=== PATIENT | female | born 1945 | race Caucasian/White ===

== ENCOUNTER 2018-02-03 06:38 | Day surgery (SDC) | payer MEDICARE, OTHER, SELFPAY ==
[2018-01-18 09:10] VITALS: BMI 31.9
[2018-02-03] VITALS (9 sets, daily range): BP systolic 80–138; BP diastolic 47–85; PULSE 67–84; RESP 12–16; TEMP 36.1–36.4; O2SAT 93–99; BMI 31.9
[2018-02-03] MEDS: LACTATED RINGERS 1,000 ML 100 ML IV (07:27)
[2018-02-03] MEDS: CEFAZOLIN 2 GM/100 ML FROZ.PIGGY IV (08:27)
--- NOTE | 2018-02-03 08:47 | SUR.OPER ---
Supine on padded OR bed, head on pillow, arms secured on padded arm boards at <90 degrees abduction, legs uncrossed, safety belt at thigh, tape over blanket over lower legs.
[2018-02-03] MEDS: LACTATED RINGERS 1,000 ML 42 ML IV (09:13)
[2018-02-03] MEDS: BUPIVACAINE 0.5% (PF) VIAL 30 ML INJ (09:15)
[2018-02-03] MEDS: LIDOCAINE 1% W/EPI INJ 20 ML INJ (09:16)
[2018-02-03] MEDS: CEFAZOLIN 1 GM VIAL IV (09:17)
--- NOTE | 2018-02-03 09:48 | PM.OP.1 ---
Operative Date/Time/Diagnoses Date of procedure: 02/03/18 Time of procedure: 09:48 Pre-op diagnosis: Incisional hernia Post-op diagnosis: same Procedure & Clinicians Procedure: Incisional hernia repair Same procedure as scheduled: Yes Indications: Painful and enlarging mid abdominal incisional hernia Surgeon: Promise Cota Anesthesia Type: General (Kotlarczyk) and Local Operative Notes Findings: 1. An area 6 x 4 cm in size with multiple fascial defects. The largest defect was approximately 2 cm right in the center of the problem area 2. Ethibond sutures from previous operations remain in place. The fascia is torn above and below sutured areas. 3. Hernia sac containing only preperitoneal fat Closure Type: primary Specimen(s): none sent Implants & Drains: 7 x 11 cm Prolene onlay mesh patch trimmed to fit Estimated Blood Loss (mL): 20 Blood products transfused: none Procedure in detail: After obtaining informed consent, the patient is brought to the operating room and placed in the supine position on the operating table. Following successful induction of general endotracheal anesthesia, appropriate padding of all bony prominences, and placement of appropriate monitors, the abdomen is prepped and draped in the standard surgical fashion. A time-out was held per SCOAP protocol. We began by infiltrating a mixture of local anesthetics and directly over the defect in the healed wound. The existing wound was then opened sharply revealing the fascia and areas of preperitoneal fat extending through the fascia. The edges of the fascia were defined. The hernia sacs were then released from the overlying tissue and placed back into the abdominal cavity after gentle adhesiolysis through the defects themselves. The wound was checked for hemostasis and irrigated with Ancef containing solution. The abdominal wall was palpated within the abdominal cavity. There is no peritoneal cavity remaining and no separation between the abdominal wall and the bowel. For this reason, I elected not to place mesh inside the abdominal cavity but to perform an onlay repair. This was done by repairing each defect with interrupted #1 Prolene sutures. I then trimmed a woven Prolene onlay patch to fit the area and sewed it to the incision and then to the surrounding fascia using 0 Prolene running suture. The wound was then checked for hemostasis. It was irrigated with Ancef containing solution and aspirated free of all blood and particulate matter. The abdominal incision was then closed in 3 layers with Vicryl and Monocryl suture. Dermabond was applied to the wound. After had been allowed to dry a binder was placed over the patient's abdominal wall to buttress the area of weakness. All sponge, needle, and instrument counts were correct at the conclusion of the case. The patient was allowed to awaken from anesthesia without difficulty and taken to the post anesthesia care unit in good condition. Complications: none Condition: stable Disposition: PACU Plan for aftercare: 1. Discharge to home 2. Follow up with me in 2 weeks 3. Wear binder at all times when out of bed.
--- NOTE | 2018-02-03 10:26 | P.HP_ITS ---
History of Present Illness Date Patient Seen: 02/03/18 Time Patient Seen: 08:22 Chief complaint: [id number] INCISIONAL HERNIA REPAIR Narrative: 73 year old lady with a history of intra-abdominal catastrophe and multiple operations. Presents today for repair of an incisional hernia. She reports she is feeling well. She has a spinal cord stimulator and it is currently on. She left her magnet at home. Patient History Medical History Afib (Acute) DJD (degenerative joint disease) (Acute) Diabetes (Acute) Femur fracture, left (Acute) GERD (gastroesophageal reflux disease) (Acute) Gout (Acute) Hearing loss (Acute) History of asthma (Acute) History of colitis (Acute) History of gastroenteritis (Acute) History of irritable bowel syndrome (Acute) History of kidney disease (Acute) History of pneumonia (Acute) History of rheumatic fever as a child (Acute) Hyperlipidemia (Acute) Hypothyroid (Acute) Osteoporosis (Acute) Severe back pain (Acute) Spinal stenosis (Acute) Ventral hernia (Acute) Surgical History H/O hernia repair (Acute ~1982) History of Demetrius fundoplication (Acute ~1981) History of abdominal surgery (Acute) History of back surgery (Acute) History of total knee arthroplasty (Acute) S/P foot surgery, right (Acute) Family & Social History Family History: Reviewed 02/03/18 by Promise Cota MD Social History: household members spouse Tobacco & Substance use: Smoking Status Never smoker alcohol intake never Substance Use Type does not use Meds Home Medications Medication Instructions Recorded Confirmed Type [TURMERIC] 2 cap PO QDAY #0 04/20/17 01/18/18 History acyclovir 400 mg PO TID #0 04/20/17 01/18/18 History albuterol sulfate 3 ml INH TIDP PRN #0 04/20/17 01/18/18 History allopurinol 300 mg PO QDAY #0 04/20/17 01/18/18 History calcium carbonate 1 tab PO BIDCC #0 04/20/17 02/03/18 History cholecalciferol (vitamin D3) 2,000 unit PO QDAY #0 04/20/17 02/03/18 History [Vitamin D3] cyanocobalamin (vitamin B-12) 100 mcg PO DAILY PRN #0 04/20/17 02/03/18 History [Vitamin B-12] cyclobenzaprine 5 mg PO PRN PRN #0 04/20/17 01/18/18 History magnesium oxide 250 mg PO QDAY #0 04/20/17 02/03/18 History montelukast 10 mg PO QPM #0 04/20/17 02/03/18 History pseudoephedrine HCl 60 mg PO Q6H PRN #0 04/20/17 02/03/18 History ranitidine HCl 150 mg PO BID #0 04/20/17 02/03/18 History valacyclovir 2,000 mg PO Q12H #0 04/20/17 01/18/18 History glipizide 5 mg PO BID 02/03/18 02/03/18 History hydrocodone-acetaminophen 1 tab PO Q4-6H PRN #40 tab MDD 6 02/03/18 Rx levothyroxine [Synthroid] 88 mcg PO DAILY 02/03/18 02/03/18 History metformin 500 mg PO BID 02/03/18 02/03/18 History ondansetron 4 mg PO QID PRN #20 tab 02/03/18 Rx Allergies Allergy/AdvReac Type Severity Reaction Status Date / Time lactose Allergy Intermediate Verified 02/03/18 07:29 tramadol [TRAMADOL] Allergy Unknown SEVERE Unverified 02/03/18 07:29 HEADACHE oxycodone [OXYCODONE] AdvReac Mild NAUSEA Unverified 02/03/18 07:29 celecoxib [From CELEBREX] AdvReac Unknown GI Unverified 02/03/18 07:29 gabapentin [GABAPENTIN] AdvReac Unknown DIZZY Unverified 02/03/18 07:29 hydromorphone [HYDROMORPHONE] AdvReac Unknown NAUSEA/MILD Unverified 02/03/18 07 :29 ITCHING lisinopril [LISINOPRIL] AdvReac Unknown COUGH Unverified 02/03/18 07:29 meloxicam [MELOXICAM] AdvReac Unknown GI DISTRESS Unverified 02/03/18 07:29 morphine [MORPHINE] AdvReac Unknown VOMITING Unverified 02/03/18 07:29 salmon AdvReac Intermediate Uncoded 02/03/18 07:29 Review of Systems Review of Systems All systems reviewed & are unremarkable except as noted in HPI and below Exam Vital Signs (past 8 hours): - 02/03/18 07:14 02/03/18 09:46 02/03/18 09:51 Temperature 97.0 F L 97.5 F L Pulse Rate 76 84 84 Respiratory Rate 16 12 13 Blood Pressure 138/85 80/51 L 93/52 L Pulse Oximetry 99 94 95 02/03/18 09:56 02/03/18 10:01 02/03/18 10:06 Temperature Pulse Rate 80 77 76 Respiratory Rate 13 16 14 Blood Pressure 82/47 L 104/62 99/65 Pulse Oximetry 95 94 93 Oxygen Delivery Method Room Air Narrative Exam Narrative: Lungs: Clear bilaterally Heart: Regular rate and rhythm Abdomen: Complex abdominal incision obviously healed by secondary intention with a palpable defect just above the umbilicus. Tender to palpation at the hernia site. Extremities: Trace edema Assessment & Plan Plan: Assessment/Plan Narrative: Pleasant 73-year-old lady with a history of intra-abdominal catastrophe several years ago who now has a incisional hernia. Due to the functioning spinal cord stimulator, we will not be using any cautery during this procedure. I discussed this with the patient and she understands that this will give her a slightly greater bleeding risk. We have once again discussed the risks and benefits of the procedure and she has expressed a desire to complete it today
--- NOTE | 2018-02-03 10:26 | SUR.PHASEII ---
PT ARRIVED TO PHASE II VIA STRETCHER. PT IN STABLE CONDITION. PT SITTING UP WITH EYES CLOSED, EASILY AROUSABLE TO VOICE WHEN SPOKEN TO. DRSG TO SURGICAL SITE C/D/I. ABD BINDER IN PLACE. PT DENIES ANY PAIN/DISCOMFORT OR NAUSEA AT THIS TIME. BED IN LOWEST POSITION AND CALL LIGHT WITHIN REACH OF PT. PT GIVEN BEVERAGE OF CHOICE AND AT BEDSIDE. BEDSIDE REPORT GIVEN TO ISIDORO PITTMAN AT THIS TIME. TRANSFERED CARE OF PT TO ISIDORO PITTMAN.
--- NOTE | 2018-02-03 10:43 | SUR.PHASEII ---
pt awake and alerrt. binder intact. pt denies any complaints. steady on her feet.. to take pt home. pt voided upon prior to d/c.
== END 2018-02-03 10:53 | disposition home or self-care (01) ==
PROVIDERS: PCP Physician Assistant; Visit Provider Surgery
PROC: (CPT 49560; principal; 2018-02-03 07:45)
DX: K43.2 Incisional hernia without obstruction or gangrene (principal); E11.9 Type 2 diabetes mellitus without complications; Z79.84 Long term (current) use of oral hypoglycemic drugs; Z96.89 Presence of other specified functional implants; I48.91 Unspecified atrial fibrillation
CPT/HCPCS: 49560; 49568; C1781; J0690; J2250; J2405; J2704; J3010

== ENCOUNTER 2018-02-06 01:18 | Emergency (ER) | payer MEDICARE, OTHER, SELFPAY ==
--- NOTE | 2018-02-06 01:20 | ED_ITS ---
HPI - General Adult General Chief complaint: Back Pain/Injury Stated complaint: PAIN AT INCISION SITE - HERNIA [id number] Time Seen by Provider: 02/06/18 01:19 Source: patient Mode of arrival: ambulatory Limitations: no limitations History of Present Illness HPI narrative: 73-year-old female who had a ventral incisional hernia repair done 3 days ago here at this hospital. After review of that noted did look like an uncomplicated surgery with mesh placement. Patient states that she is here for evaluation of left upper back pain. She states that it comes in spasms. Does localize to her left upper back. She also states that she has been having urinary incontinence issues. She states that 1 day after her surgery and prior to this visit she did have a temperature at of 100.4. She denies any other urinary symptoms. Has which she thinks is her normal postoperative abdominal pain. No lower back pain. Related Data Home Medications Medication Instructions Recorded Confirmed [TURMERIC] 2 cap PO QDAY #0 04/20/17 01/18/18 acyclovir 400 mg PO TID #0 04/20/17 01/18/18 albuterol sulfate 3 ml INH TIDP PRN #0 04/20/17 01/18/18 allopurinol 300 mg PO QDAY #0 04/20/17 01/18/18 calcium carbonate 1 tab PO BIDCC #0 04/20/17 02/03/18 cholecalciferol (vitamin D3) 2,000 unit PO QDAY #0 04/20/17 02/03/18 [Vitamin D3] cyanocobalamin (vitamin B-12) 100 mcg PO DAILY PRN #0 04/20/17 02/03/18 [Vitamin B-12] cyclobenzaprine 5 mg PO PRN PRN #0 04/20/17 01/18/18 magnesium oxide 250 mg PO QDAY #0 04/20/17 02/03/18 montelukast 10 mg PO QPM #0 04/20/17 02/03/18 pseudoephedrine HCl 60 mg PO Q6H PRN #0 04/20/17 02/03/18 ranitidine HCl 150 mg PO BID #0 04/20/17 02/03/18 valacyclovir 2,000 mg PO Q12H #0 04/20/17 01/18/18 glipizide 5 mg PO BID 02/03/18 02/03/18 levothyroxine [Synthroid] 88 mcg PO DAILY 02/03/18 02/03/18 metformin 500 mg PO BID 02/03/18 02/03/18 Previous Rx's Medication Instructions Recorded hydrocodone-acetaminophen 1 tab PO Q4-6H PRN #40 tab MDD 6 02/03/18 ondansetron 4 mg PO QID PRN #20 tab 02/03/18 cyclobenzaprine 10 mg PO TID PRN #9 tab 02/06/18 diazepam [Valium] 5 mg PO BID PRN #4 tab 02/06/18 Allergies Allergy/AdvReac Type Severity Reaction Status Date / Time lactose Allergy Intermediate Verified 02/06/18 02:04 tramadol [TRAMADOL] Allergy Unknown SEVERE Verified 02/06/18 02:04 HEADACHE oxycodone [OXYCODONE] AdvReac Mild NAUSEA Verified 02/06/18 02:04 celecoxib [From CELEBREX] AdvReac Unknown GI Verified 02/06/18 02:04 gabapentin [GABAPENTIN] AdvReac Unknown DIZZY Verified 02/06/18 02:04 hydromorphone [HYDROMORPHONE] AdvReac Unknown NAUSEA/MILD Verified 02/06/18 02: 04 ITCHING lisinopril [LISINOPRIL] AdvReac Unknown COUGH Verified 02/06/18 02:04 meloxicam [MELOXICAM] AdvReac Unknown GI DISTRESS Verified 02/06/18 02:04 morphine [MORPHINE] AdvReac Unknown VOMITING Verified 02/06/18 02:04 salmon AdvReac Intermediate Uncoded 02/03/18 07:29 Review of Systems Constitutional Reports fever(s), Denies headache(s) and Denies weakness ENT Ears, Nose, Mouth, and Throat: Denies headache(s) Cardiovascular Denies chest pain and Denies dyspnea Respiratory Denies dyspnea Gastrointestinal Gastrointestinal: Denies nausea and Denies vomiting Comments: Postoperative abdominal pain Genitourinary Denies hematuria, Denies dysuria, Denies flank pain and Reports urinary incontinence Musculoskeletal Reports back pain, Denies myalgias, Denies arthralgias and Denies numbness Integumentary/Breasts Denies lesions and Denies rash Neurologic Denies headache(s), Denies focal weakness, Denies numbness, Denies radicular pain and Denies weakness Hematologic/Lymphatic Denies easy bleeding and Denies easy bruising [facility] Medical History Afib (Acute) DJD (degenerative joint disease) (Acute) Diabetes (Acute) Femur fracture, left (Acute) GERD (gastroesophageal reflux disease) (Acute) Gout (Acute) Hearing loss (Acute) History of asthma (Acute) History of colitis (Acute) History of gastroenteritis (Acute) History of irritable bowel syndrome (Acute) History of kidney disease (Acute) History of pneumonia (Acute) History of rheumatic fever as a child (Acute) Hyperlipidemia (Acute) Hypothyroid (Acute) Osteoporosis (Acute) Severe back pain (Acute) Spinal stenosis (Acute) Ventral hernia (Acute) Surgical History H/O hernia repair (Acute ~1982) History of Demetrius fundoplication (Acute ~1981) History of abdominal surgery (Acute) History of back surgery (Acute) History of total knee arthroplasty (Acute) S/P foot surgery, right (Acute) Social History household members: spouse Smoking Status: Never smoker alcohol intake: never Exam Initial Vital Signs Initial Vital Signs: Vital Signs Temperature 97.1 F L 02/06/18 01:34 Pulse Rate 101 H 02/06/18 01:34 Respiratory Rate 18 02/06/18 01:34 Blood Pressure 132/84 02/06/18 01:34 Pulse Oximetry 97 02/06/18 01:34 Const General: cooperative, well developed, well groomed and No acute distress Orientation: alert, awake and oriented x3 HENMT Head: normal to inspection and normocephalic Resp Effort & Inspection: normal respiratory effort Auscultation: clear to auscultation bilaterally Cardio Rate: regular rate Rhythm: regular rhythm Pulses: radial pulses present GI Inspection: non-distended Palpation: soft Other: Midline surgical incision in place. No surrounding erythema. No dehiscence. Wound looks well. Back/Spine/Pelvis Other: Patient with tenderness to palpation over the left sided rhomboids. Paraspinal. No lower back pain. Skin Other: Surgical wound midline abdomen looks well no other rashes Neuro General: alert, awake and oriented x3 Cognition: normal cognition Speech: speech normal Motor: muscle tone normal throughout Sensory Exam: no sensory deficits noted Extrem General: normal to inspection and capillary refill normal Psych Appearance: grossly normal and well kempt Course Orders Ordered: ED Orders 02/06/18 02:26 Complete Blood Count AUTO DIFF Stat Comprehensive Metabolic Panel Stat Lactate (Lactic Acid) Stat Lipase Stat 02/06/18 02:50 XR chest 1V Stat 02/06/18 03:30 Venous Blood Gas Stat Discontinued Medications Diazepam (Valium) 5 mg PO NOW ONE Stop: 02/06/18 02:01 Last Admin: 02/06/18 02:06 Dose: 5 mg Vital Signs - 8 hr 02/06/18 01:34 Temperature 97.1 F L Pulse Rate 101 H Respiratory Rate 18 Blood Pressure 132/84 Pulse Oximetry 97 Medical Decision Making Medical Records Medical records reviewed: Yes I reviewed the patient's medical records. Lab Data Lab results reviewed: Yes I reviewed the patient's lab results. Result diagrams: 02/06/18 02:26 02/06/18 02:26 Lab Results 02/06/18 02/06/18 02/06/18 Range/Units 02:26 02:26 02:26 WBC 13.3 H (4.5-11.0) X10^3/uL RBC 4.97 (4.0-5.2) X10^6/uL Hgb 13.6 (12.0-16.0) g/dL Hct 41.2 (36-46) % MCV 82.9 (80-100) fL MCH 27.5 (26-34) PG MCHC 33.1 (30-36) % RDW 16.3 H (11.6-14.8) % Plt Count 245 (150-400) X10^3/uL Neut % (Auto) 78.8 H (50-75) % Lymph % (Auto) 10.7 L (25-40) % Hendry % (Auto) 9.7 (3-14) % Eos % (Auto) 0.1 L (2-4) % Baso % (Auto) 0.7 (0-2) % Neut # (Auto) 26239 H (0369-3972) /uL Sodium 137 (137-145) mmol/L Potassium 4.6 (3.4-5.1) mmol/L Chloride 101 (98-107) mmol/L Carbon Dioxide 21 L (22-32) mmol/L BUN 19 H (7-17) mg/dL Creatinine 0.90 (0.52-1.04) mg/dL Estimated GFR > 60.0 (>60) mL/min BUN/Creatinine Ratio 21.1 (6-22) Glucose 335 H (80-110) mg/dL Lactate 1.4 (0.7-2.1) mmol/L Calcium 9.7 (8.4-10.2) mg/dL Total Bilirubin 1.0 (0.2-1.3) mg/dL AST 19 (14-36) IU/L ALT 11 (9-52) IU/L Alkaline Phosphatase 91 (38-126) U/L Total Protein 7.6 (6.3-8.2) g/dL Albumin 4.3 (3.5-5.0) g/dL Globulin 3.3 (1.7-4.1) g/dL Albumin/Globulin Ratio 1.3 (1.0-2.8) Lipase (23-300) U/L 02/06/18 Range/Units 02:26 WBC (4.5-11.0) X10^3/uL RBC (4.0-5.2) X10^6/uL Hgb (12.0-16.0) g/dL Hct (36-46) % MCV (80-100) fL MCH (26-34) PG MCHC (30-36) % RDW (11.6-14.8) % Plt Count (150-400) X10^3/uL Neut % (Auto) (50-75) % Lymph % (Auto) (25-40) % Hendry % (Auto) (3-14) % Eos % (Auto) (2-4) % Baso % (Auto) (0-2) % Neut # (Auto) (6686-8499) /uL Sodium (137-145) mmol/L Potassium (3.4-5.1) mmol/L Chloride (98-107) mmol/L Carbon Dioxide (22-32) mmol/L BUN (7-17) mg/dL Creatinine (0.52-1.04) mg/dL Estimated GFR (>60) mL/min BUN/Creatinine Ratio (6-22) Glucose (80-110) mg/dL Lactate (0.7-2.1) mmol/L Calcium (8.4-10.2) mg/dL Total Bilirubin (0.2-1.3) mg/dL AST (14-36) IU/L ALT (9-52) IU/L Alkaline Phosphatase (38-126) U/L Total Protein (6.3-8.2) g/dL Albumin (3.5-5.0) g/dL Globulin (1.7-4.1) g/dL Albumin/Globulin Ratio (1.0-2.8) Lipase 13 L (23-300) U/L Urine Dip Bedside Urine Glucose 1000 mg/dl Bedside Urine Bilirubin + 1 Bedside Urine Ketone ++ 40 Urine Specific [place] 1.020 Bedside Urine Occult Blood - Negative Bedside Urine pH 6.0 Bedside Urine Protein +/- 15 Bedside Urine Urobilinogen - Negative Bedside Urine Nitrite - Negative Bedside Urine Leukocytes - Negative Esterase Point of care testing: Urine Dip Bedside Urine Glucose 1000 mg/dl Bedside Urine Bilirubin + 1 Bedside Urine Ketone ++ 40 Urine Specific [place] 1.020 Bedside Urine Occult Blood - Negative Bedside Urine pH 6.0 Bedside Urine Protein +/- 15 Bedside Urine Urobilinogen - Negative Bedside Urine Nitrite - Negative Bedside Urine Leukocytes - Negative Esterase Imaging Data Chest x-ray: Attestation: I personally reviewed and interpreted this imaging study as follows: My impression: Normal size heart No pneumothorax No focal consolidation MDM Narrative Additional Information: Patient's surgical incision looks very well. No signs of erythema. No dehiscence. Was tender to what I would expect this far postoperative. Her back pain was left upper back. Over the rhomboids. I suspect that this was a muscle spasm. She was having no lower back pain I do not feel that the urinary incontinence secondary to cauda equina. Her urine showed no signs of infection. Her chest x-ray shows no signs of infection. She did have an elevated white blood cell count however I head no source of an infection. This could be demargination secondary to her surgery. Patient was also hyperglycemic. Did have ketones in her urine however was not acidotic on her VBG. Patient was able to sleep and felt much better with her back pain after she was given Valium here in the ER. She was able to control her urine to the point to where she could give us a urine sample. Will hold on further workup for now. Will send home with a few pills of Valium. Also sent home with more Flexeril. She is instructed she needed to contact her operative surgeon and also her primary doctor on Thursday. She was given return precautions. She expressed understanding and agreement with plan. Discharge Plan Departure Patient Disposition: Home Clinical Impression: Thoracic back pain, Urinary incontinence Instructions: Urinary Incontinence -- Female, DI for Back Spasm Activity Restrictions/Additional Instructions: Recommend that you continue all of your postoperative instructions that you were given by your surgeon. Take the medications as directed. Call your surgeon in your primary doctor on Thursday for follow-up. Return to the emergency department for any new or worsening symptoms Prescriptions: New cyclobenzaprine 10 mg tablet 10 mg PO TID PRN (Reason: muscle spasm) Qty: 9 RF: 0 diazepam [Valium] 5 mg tablet 5 mg PO BID PRN (Reason: muscle spasm) Qty: 4 RF: 0 No Action pseudoephedrine HCl 30 MG tablet 60 mg PO Q6H PRN (Reason: Pain) Qty: 0 RF: 0 montelukast 10 MG tablet 10 mg PO QPM Qty: 0 RF: 0 allopurinol 300 MG tablet 300 mg PO QDAY Qty: 0 RF: 0 cyclobenzaprine 5 MG tablet 5 mg PO PRN PRN (Reason: Muscle Spasm) Qty: 0 RF: 0 ranitidine HCl 150 MG tablet 150 mg PO BID Qty: 0 RF: 0 acyclovir 400 MG tablet 400 mg PO TID Qty: 0 RF: 0 albuterol sulfate 2.5 MG/3 ML solution for nebulization 3 ml INH TIDP PRN (Reason: Pain) Qty: 0 RF: 0 calcium carbonate 500 MG tablet 1 tab PO BIDCC Qty: 0 RF: 0 magnesium oxide 250 MG tablet 250 mg PO QDAY Qty: 0 RF: 0 [TURMERIC] 2 cap PO QDAY Qty: 0 RF: 0 valacyclovir 1,000 MG tablet 2,000 mg PO Q12H Qty: 0 RF: 0 cyanocobalamin (vitamin B-12) [Vitamin B-12] 50 MCG tablet 100 mcg PO DAILY PRN (Reason: vitamin ) Qty: 0 RF: 0 cholecalciferol (vitamin D3) [Vitamin D3] 2,000 UNIT capsule 2,000 unit PO QDAY Qty: 0 RF: 0 levothyroxine [Synthroid] 88 mcg Tablet 88 mcg PO DAILY RF: 0 glipizide 5 mg Tablet 5 mg PO BID RF: 0 metformin 500 mg Tablet 500 mg PO BID RF: 0 hydrocodone-acetaminophen 5-325 mg tablet 1 tab PO Q4-6H MDD 6 PRN (Reason: pain) Qty: 40 RF: 0 ondansetron 4 mg tablet,disintegrating 4 mg PO QID PRN (Reason: nausea and vomiting) Qty: 20 RF: 0
[2018-02-06 01:34] VITALS: BP 132/84; PULSE 101; RESP 18; TEMP 36.2; O2SAT 97; BMI 30.4
[2018-02-06] MEDS: diazePAM 5 MG TABLET PO (02:06)
[2018-02-06 02:36] LABS: Add Manual Diff / Slide Review NO; Basophils Percent Auto 0.7 % (0-2); Eosinophils Percent Auto 0.1 % (2-4); Hematocrit 41.2 % (36-46); Hemoglobin 13.6 g/dL (12.0-16.0); Lymphocytes Percent Auto 10.7 % (25-40); Mean Corpuscular HGB Conc 33.1 % (30-36); Mean Corpuscular Hemoglobin 27.5 PG (26-34); Mean Corpuscular Volume 82.9 fL (80-100); Monocytes Percent Auto 9.7 % (3-14); Neutrophils Absolute Auto 10500 /uL (3000-5900); Neutrophils Percent Auto 78.8 % (50-75); Platelet Count 245 X10^3/uL (150-400); Red Blood Cell Count 4.97 X10^6/uL (4.0-5.2); Red Cell Distribution Width 16.3 % (11.6-14.8); White Blood Cell Count 13.3 X10^3/uL (4.5-11.0)
[2018-02-06 02:40] LABS: Lactate (Lactic Acid) 1.4 mmol/L (0.7-2.1); Lipase 13 U/L (23-300)
[2018-02-06 02:42] LABS: Alanine Aminotransferase 11 IU/L (9-52); Albumin 4.3 g/dL (3.5-5.0); Albumin Globulin Ratio 1.3 (1.0-2.8); Alkaline Phosphatase 91 U/L (38-126); Aspartate Aminotransferase 19 IU/L (14-36); BUN Creatinine Ratio 21.1 (6-22); Blood Urea Nitrogen 19 mg/dL (7-17); Calcium 9.7 mg/dL (8.4-10.2); Carbon Dioxide 21 mmol/L (22-32); Chloride 101 mmol/L (98-107); Estimated Glomerular Filt Rate > 60.0 mL/min (>60); Globulin 3.3 g/dL (1.7-4.1); Glucose 335 mg/dL (80-110); HEMOLYSIS < 15 (0-50); Potassium 4.6 mmol/L (3.4-5.1); Sodium 137 mmol/L (137-145); Total Protein 7.6 g/dL (6.3-8.2)
--- NOTE | 2018-02-06 02:50 | DI.RAD.S_ITS ---
PROCEDURE: XR CHEST 1V INDICATIONS: Postop fever TECHNIQUE: One view of the chest was acquired. COMPARISON: [facility], CHEST 2 VIEW, 05/11/2017, 15:43. [facility], CHEST 2 VIEW, 08/26/2017, 12:12. FINDINGS: Surgical changes and devices: Surgical clips in the epigastrium. There is a spine stimulator. Lungs and pleura: Small lung volumes are likely secondary to a shallow inspiration Left basilar scar is/atelectasis. No pleural effusions or pneumothorax. Mediastinum: Mediastinal contours appear normal. Heart size is normal. Bones and chest wall: No suspicious bony lesions. Overlying soft tissues appear unremarkable. Degenerative changes in shoulders bilaterally. IMPRESSION: No acute cardiopulmonary disease. Dictated by: Kel Horne M.D. on 02/06/2018 at 7:19 Approved by: Kel Horne M.D. on 02/06/2018 at 7:20
--- NOTE | 2018-02-06 03:37 | PC.NURSE ---
PT states back spasms since yesterday worse tonight after cat jumped on her. Post Op incisional hernia repair on 02/03/[address] Cota, surgical site wound is clean and dry. States she has also been incontinent of urine since hernia repair on 02/03/18.
[2018-02-06 04:44] VITALS: BP 125/80; PULSE 100; RESP 15; TEMP 36.9; O2SAT 99
[2018-02-06 05:20] LABS: pH VBG 7.45 (7.31-7.41)
[2018-02-06 05:21] LABS: HCO3 VBG 24 mmol/L (24-28); Oxygen Saturation VBG 75 % (70-75); PCO2 VBG 33.9 mmHg (45-50); PO2 VBG 38 mmHg (35-45); Total CO2 VBG 25 mmol/L (24-29)
== END 2018-02-06 04:45 | disposition home or self-care (01) ==
PROVIDERS: Emergency Provider Emergency Medicine; PCP Physician Assistant
DX: M54.6 Pain in thoracic spine (principal); R32 Unspecified urinary incontinence; Z98.890 Other specified postprocedural states
CPT/HCPCS: 36415; 36591; 71045; 80053; 81003; 82805; 83605; 83690; 85025; 99282; 99284

== ENCOUNTER → 2018-03-17 08:09 | Outpatient (CLI) | payer MEDICARE, OTHER, SELFPAY ==
--- NOTE | 2018-03-17 | DI.MG.S_ITS ---
BILATERAL DIGITAL SCREENING MAMMOGRAM 3D/2D WITH CAD: 03/17/2018 CLINICAL: Routine screening. Comparison is made to exams dated: 08/25/2016 mammogram, 08/15/2016 mammogram, and 08/15/2015 mammogram - [facility]. There are scattered fibroglandular elements in both breasts. Current study was also evaluated with a Computer Aided Detection (CAD) system. No significant masses, calcifications, or other findings are seen in either breast. There has been no significant interval change. IMPRESSION: NEGATIVE There is no mammographic evidence of malignancy. A 1 year screening mammogram is recommended. This exam was interpreted at Station ID: [id number]. NOTE: For mammograms, a report in lay terms will be sent to the patient. Approximately 15% of breast malignancies will not be visualized mammographically. In the management of a palpable breast mass, a negative mammogram must not discourage biopsy of a clinically suspicious lesion. Electronically Signed By: Alvarado miller/tisha:03/17/2018 22:01:26 letter sent: Normal Exam ACR BI-RADS Category 1: Negative [id number]
== END ==
PROVIDERS: PCP Physician Assistant; Visit Provider Physician Assistant
DX: Z12.31 Encounter for screening mammogram for malignant neoplasm of breast (principal)
CPT/HCPCS: 77063; 77067

== ENCOUNTER → 2018-11-04 10:16 | Outpatient (CLI) | payer MEDICARE, OTHER, SELFPAY | PROVIDERS: PCP Nurse Practitioner Family; Visit Provider Nurse Practitioner Family | DX: M81.0 Age-related osteoporosis without current pathological fracture (principal); Z78.0 Asymptomatic menopausal state; E07.9 Disorder of thyroid, unspecified; E11.9 Type 2 diabetes mellitus without complications | CPT/HCPCS: 77080 ==

== ENCOUNTER → 2020-06-06 13:30 | Oncology outpatient (ONC) | payer MEDICARE, OTHER, SELFPAY ==
[2018-03-12 09:31] VITALS: BP 117/70; PULSE 72; RESP 16; TEMP 36.7
[2018-03-12] MEDS: ZOLEDRONIC ACID 5 MG in SODIUM CHLORIDE 0.9% 100 ML 318.75 ML IV (09:41)
[2019-05-30 14:38] VITALS: BP 130/67; PULSE 82; RESP 16; TEMP 36.4; O2SAT 95
[2019-05-30] MEDS: ZOLEDRONIC ACID 5 MG in SODIUM CHLORIDE 0.9% 100 ML 318.75 ML IV (14:56)
--- NOTE | 2020-02-20 13:29 | ONC.SCHED ---
Order for Reclast was faxed for patient however she received reclast in May 2019. Advised patient's provider that reclast is usually only received 1 time per year and if they needed it before that time to reach out to our triage nurse to review and schedule
[2020-06-06 13:48] VITALS: BP 121/77; PULSE 81; RESP 15; TEMP 36.8; O2SAT 97
[2020-06-06] MEDS: ZOLEDRONIC ACID 5 MG in SODIUM CHLORIDE 0.9% 100 ML 425 ML IV (14:04)
== END ==
PROVIDERS: PCP Physician Assistant; Visit Provider Physician Assistant
DX: M81.8 Other osteoporosis without current pathological fracture (principal)
CPT/HCPCS: 96365; 96374; J3489